=== PATIENT | female | born 1985 | race Caucasian/White ===

== ENCOUNTER → 2018-05-09 09:30 | Outpatient (CLI) | payer OTHER, SELFPAY ==
--- NOTE | 2018-05-09 09:34 | US_ITS ---
STUDY: ULTRASOUND BREAST - RIGHT REASON FOR EXAM: Female, 33 years old. Palpable lump in the right breast. TECHNIQUE: Axial and longitudinal images of the RIGHT breast were performed with a high resolution ultrasound transducer. COMPARISON: Comparison is made with prior mammogram dated earlier today. FINDINGS: RIGHT Breast: There is a 1.0 cm x 1.1 cm x 0.5 cm well-defined hypoechoic nodule at the 10:00 position in the breast at 6 cm from the nipple. This has a slight lobular contour. A biopsy is recommended for further evaluation. US/Breast Limited Unilateral IMPRESSION: The palpable abnormality corresponds to a hypoechoic slightly irregular nodule at the 10:00 position of the breast at 6 cm from nipple. A biopsy is recommended for further evaluation. ASSESSMENT CATEGORY: BIRADS Category 4: Suspicious - Biopsy Should Be Considered. A letter regarding these results will be sent to the patient by the facility within 30 days. Electronically Signed: Robbi Murray MD at 11:25 EDT Tel [phone], Service support ,
--- NOTE | 2018-05-09 09:34 | BI_ITS ---
MAMMOGRAPHY - BILATERAL DIAGNOSTIC REASON FOR EXAM: Female, 33 years old. One-month history of right axillary lump. Tenderness. PERTINENT HISTORY: Non-contributory. 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 TECHNIQUE: Digital bilateral breast jerome (3D mammographic acquisition) in the CC and MLO projections. 2-D mediolateral oblique (MLO) and craniocaudad (CC) views of both breasts were obtained. CAD: Full Field Digital Mammography with Computer Added Detection was performed. COMPARISON: None. Baseline examination. FINDINGS: Breast Composition: The breasts are extremely dense, which lowers the sensitivity of mammography. There are no dominant masses or suspicious calcifications. No other significant abnormalities are identified. BI/DIAG MAMM W/CAD, BILAT IMPRESSION: Negative diagnostic mammogram. With the patient's history of a palpable abnormality in the right axillary region, correlation with ultrasound is recommended. ASSESSMENT CATEGORY: BIRADS Category 0: Incomplete. Need additional imaging evaluation. A letter regarding these results will be sent to the patient by the facility within 30 days. Approximately 10% of breast cancers are not detected by mammography. A normal mammogram should not delay biopsy of a clinically suspicious abnormality. Electronically Signed: Robbi Murray MD at 10:34 EDT Tel [phone], Service support ,
== END ==
PROVIDERS: Visit Provider Obstetrics & Gynecology
DX: N63.10 Unspecified lump in the right breast, unspecified quadrant (principal)
CPT/HCPCS: 76642; 77062; 77066; G0279

== ENCOUNTER → 2018-05-17 06:13 | Outpatient (CLI) | payer OTHER, SELFPAY ==
--- NOTE | 2018-05-16 | BRBX_PTH ---
PATIENT: EARL GARCIA [facility] U#:[id number] AGE/SX: 40/F ROOM: RE05/17/[address]: Dr. Olga Lidia Hall MD : 1985 BED: DIS: SPEC #: [id number] RECD: 05/17/18 14:26 STATUS: SHAKEEL REVirgil #: [id number] OSEI: 05/16/18 00:[address]: Olga Lidia Hall DEPT: SURGICAL PATHOLOGY RECD BY: Sebastian Pink ENTERED: 05/17/18 14:27 SP TYPE: BREAST BX OT DR: No Primary Care Phys Tissues: Right breast, NOS Procedures: Surgery Specimen Level IV HEADER OPERATION: Right breast biopsy PRE-OP DIAGNOSIS: Right breast nodule 10 o?clock, 6 cm from nipple TISSUE SUBMITTED: Right breast tissue 10 o?clock, 6 cm from nipple ISCHEMIC TIME: 1 minute FIXATION TIME: 77.5 hours MICROSCOPIC DIAGNOSIS Right breast tissue, 10 o?clock, 6 cm from nipple, core biopsy: Fragments of benign breast tissue, no pathologic diagnosis. See comment. CARMEN:[email or web address] 05/20/18 COMMENT Correlation with clinical, radiologic findings and appropriate follow up are necessary. Rebiopsy is suggested if clinically indicated. MICROSCOPIC DESCRIPTION Slides are reviewed. GROSS DESCRIPTION Received in fixative is one container labeled with the patient's name and designated right breast. The specimen consists of multiple elongated fragments of carlos-yellow fibroadipose tissue that in aggregate measure 1 x 0.2 x 0.1 cm. The entire specimen is submitted in one cassette. / CARMEN:navjot 05/17/18 TC:4 CPT: 93879
== END ==
PROVIDERS: Visit Provider Surgery
DX: N63.10 Unspecified lump in the right breast, unspecified quadrant (principal)
CPT/HCPCS: 88305

== ENCOUNTER → 2018-06-06 07:34 | Outpatient (CLI) | payer OTHER, SELFPAY ==
--- NOTE | 2018-06-06 08:20 | BRBX_PTH ---
PATIENT: EARL GARCIA LOC: U#:[id number] AGE/SX: 40/F ROOM: RE06/06/[address]: Dr. Olga Lidia Hall MD : 1985 BED: DIS: SPEC #: [id number] RECD: 06/06/18 09:12 STATUS: SHAKEEL BARRAZA #: [id number] OSEI: 06/06/18 08:[address]: Olga Lidia Hall DEPT: SURGICAL PATHOLOGY RECD BY: Dionte Spence ENTERED: 06/06/18 10:20 SP TYPE: BREAST BX OTHR DR: No Primary Care Phys Tissues: Right breast, NOS Procedures: Surgery Specimen Level IV HEADER OPERATION: Right breast biopsy PRE-OP DIAGNOSIS: Breast mass TISSUE SUBMITTED: Right breast core tissue 10 o?clock, 6 cm from nipple ISCHEMIC TIME: 1 minute FIXATION TIME: 11 hours MICROSCOPIC DIAGNOSIS Right breast, 10 o?clock, 6 cm from nipple, core biopsy: Fibroadenoma. Negative for atypia or malignancy. [email or web address] 06/07/18 COMMENT Correlation with clinical, radiologic findings and appropriate follow up are necessary. MICROSCOPIC DESCRIPTION Slides are reviewed. GROSS DESCRIPTION Received in fixative is one container labeled with the patient's name and designated right breast. The specimen consists of multiple elongated fragments of carlos-yellow fibroadipose tissue that in aggregate measure 2 x 1 x 0.2 cm. The entire specimen is submitted in one cassette. / CARMEN:navjot 06/06/18 TC:1 CPT: 15774
--- NOTE | 2018-06-06 08:53 | PCM.OP.BLANK ---
Operative Report Date of Procedure: 06/06/18 Procedure: ultrasound-guided core biopsy Indications: 33 year-old female with hypOechoic nodule at 10:00 6 cm from the nipple in the right breast as the previous biopsy of this area only showed normal breast tissue. Risk benefits were discussed the patient and she elected to proceed with ultrasound guided core biopsy with clip placement Description of procedure: Patient was brought into the ultrasound room in the right breast was marked. A timeout was completed verifying correct patient, procedure, site, specially, prior to beginning procedure. The right breast was prepped and draped in usual sterile fashion and using local anesthesia was obtained with 1% lidocaine with epi. The lesion was located with the ultrasound. Small incision was made with 11 blade to introduced the mammotome through the skin. Under ultrasound guidance multiple core samples were obtained using then 13-gauge mammotome and sent in formalin for pathology. The mammotome mammostar clip-barbell- was then deployed into the biopsy cavity under ultrasound guidance and a picture was taken. Upon completion procedure hemostasis was obtained and a Steri-Strip and OpSite were placed. Patient was then taken to the mammography suite for clip verification. The clip was verified and located next to the previous clip which was BARD enhanced coil shape. The patient tolerated the procedure well and was discharged from the breast imaging department good condition. complications: none
== END ==
PROVIDERS: Visit Provider Surgery
DX: D24.1 Benign neoplasm of right breast (principal)
CPT/HCPCS: 19083; 77065; 88305

== ENCOUNTER → 2019-09-30 09:18 | Outpatient (CLI) | payer OTHER, SELFPAY ==
[2019-09-30 09:59] LABS: T4 Free Direct 0.83 ng/dL (0.76-1.46); Thyroid Stim Hormone (TSH) 0.88 uIU/mL (0.358-3.74)
[2019-10-02 11:55] LABS: HPV APTIMA, High Risk Negative (Negative)
== END ==
PROVIDERS: Referring Provider Nurse Practitioner Women's Health; Visit Provider Nurse Practitioner Women's Health
DX: Z12.4 Encounter for screening for malignant neoplasm of cervix (principal); Z80.8 Family history of malignant neoplasm of other organs or systems
CPT/HCPCS: 36415; 84439; 84443; 87624; 88175; G0145

== ENCOUNTER → 2023-12-26 | Outpatient (CLI) | payer OTHER, SELFPAY ==
--- NOTE | 2023-12-26 16:09 | US_ITS ---
STUDY: ULTRASOUND TRANSVAGINAL CLINICAL: Female, 38 years old. abnormal uterine bleeding TECHNIQUE: Transabdominal and Transvaginal COMPARISON: None. FINDINGS: Normal uterine size measuring 7.9 x 5.4 x 3.4 cm in maximal craniocaudal dimension. There are no myometrial masses. Normal endometrial thickness measuring 8 mm. Endometrial echoes are hyperechoic. A tiny incidental endometrial calcification seen. There are no endometrial masses, and there is no fluid in the endometrial cavity. Normal uterine cervix. Normal right ovary, measuring 2.8 x 1.9 x 1.4 cm. There are multiple follicles without a dominant cyst. Normal blood flow. Normal left ovary, measuring 3.4 x 2.6 x 1.8 cm. There is a 1.7 cm cyst. There is normal blood flow. There is mild free fluid in the pelvis. Polycystic ovary disease: No. US/Transvaginal Non- IMPRESSION: Mild free fluid. No other definite acute or significant abnormality seen. Electronically Signed: Isac Oquendo MD at 22:59 EST ,
== END | disposition home or self-care (01) ==
LOC: US 16:08
PROVIDERS: Referring Provider Nurse Practitioner Women's Health; Visit Provider Nurse Practitioner Women's Health
DX: N93.9 Abnormal uterine and vaginal bleeding, unspecified (principal)
CPT/HCPCS: 76830

== ENCOUNTER → 2024-12-05 | Outpatient (CLI) | payer OTHER, SELFPAY ==
[2024-12-11 10:07] LABS: HPV APTIMA, High Risk Negative (Negative)
== END | disposition home or self-care (01) ==
LOC: LABSPEC 16:03
PROVIDERS: Referring Provider Obstetrics & Gynecology; Visit Provider Obstetrics & Gynecology
DX: Z12.4 Encounter for screening for malignant neoplasm of cervix (principal)
CPT/HCPCS: 87624; 88175; G0145